=== PATIENT | female | born 1945 | race Caucasian/White ===

== ENCOUNTER 2023-04-29 19:52 | Emergency (ER) | payer MEDICARE, SELFPAY ==
[2023-04-29 19:57] VITALS: BP 148/78; PULSE 100; RESP 18; TEMP 37.1; O2SAT 98; BMI 27.4
--- NOTE | 2023-04-29 20:29 | ED_ITS ---
HPI - Back Pain/Injury General Chief Complaint: Back Pain/Injury Stated Complaint: Flank Pain Time Seen by Provider: 04/29/23 20:26 Source: patient Mode of arrival: walk-in Limitations: no limitations History of Present Illness HPI Narrative: patient presents complaining of left CVA pain that started around 5pm. No fever or urinary symptoms. No injury. States she spoke to a friend who advised she come in for workup. Denies past history of kidney infection. No associated abdominal pain MD elicited complaint: Reports back pain Related Data Home Medications Medication Instructions Recorded Confirmed No Known Home Medications 04/29/23 04/29/23 Allergies Allergy/AdvReac Type Severity Reaction Status Date / Time amoxicillin Allergy Mild GI upset Verified 04/29/23 20:04 erythromycin base Allergy Mild gi upset Verified 04/29/23 20:03 Penicillins Allergy Mild GI upset Verified 04/29/23 20:03 benedryl Allergy Mild GI upset Uncoded 04/29/23 20:03 doxycycline AdvReac Mild Abdominal Uncoded 04/29/23 20:03 Pain Review of Systems ROS Status of ROS 10 or more systems reviewed and unremark able except as noted in history and below PFSH [facility] Social History Smoking status: Never smoker Exam Constitutional Vital Signs, click to edit/add: Last Vital Signs Temp 98.7 F 04/29/23 19:57 Pulse 100 H 04/29/23 19:57 Resp 18 04/29/23 19:57 BP 148/78 H 04/29/23 19:57 Pulse Ox 98 04/29/23 19:57 O2 Del Method Room Air 04/29/23 19:57 Common normals: no apparent distress, average body habitus, oriented x3, no limitations, healthy appearing, alert and well nourished Eye Common normals: EOMs intact bilaterally and conjunctivae normal Respiratory Common normals: normal respiratory effort, no retractions, no use of accessory muscles and clear to auscultation bilaterally Cardio Common normals: regular rate, regular rhythm, S1 normal heart sound and S2 normal heart sound GI Common normals: Normal to inspection, nondistended, normoactive bowel sounds present, soft to palpation and non-tender Other: mild left CVA tenderness Extremity Common normals: normal to inspection and full ROM Neuro Common normals: oriented x3, CN's II-XII intact bilaterally, moves all extremities and no focal motor deficits Psych Appearance: grossly normal Course Vital Signs Vital signs: Vital Signs Temperature 98.7 F 04/29/23 19:57 Pulse Rate 100 H 04/29/23 19:57 Respiratory Rate 18 04/29/23 19:57 Blood Pressure 148/78 H 04/29/23 19:57 Pulse Oximetry 98 04/29/23 19:57 Oxygen Delivery Method Room Air 04/29/23 19:57 Temperature 98.7 F 04/29/23 19:57 Pulse Rate 100 H 04/29/23 19:57 Respiratory Rate 18 04/29/23 19:57 Blood Pressure 148/78 H 04/29/23 19:57 Pulse Oximetry 98 04/29/23 19:57 Oxygen Delivery Method Room Air 04/29/23 19:57 MDM - Back Pain/Injury MDM Narrative Medical decision making narrative: presents with left CVA pain. mild pain. UA neg for infection. CT with 3mm stone at Uterovesical junction. Patient re examined and now is pain free. She is advised of the diagnosis. Given dose of flomax and discharged to follow up with her doctor Lab Data Labs: Lab Results 04/29/23 04/29/23 Range/Units 20:39 21:52 WBC 11.1 H (4.0-11.0) 10^3/uL RBC 4.52 (4.20-5.40) 10^6/uL Hgb 13.0 (12.0-16.0) g/dL Hct 40.7 (36.0-48.0) % MCV 90.0 (81.0-99.0) fL MCH 28.8 (26.7-34.0) pg MCHC 31.9 (29.9-35.2) g/dL RDW 13.6 (11.0-15.0) % Plt Count 152 (150-450) 10^3/uL MPV 10.3 (9.5-13.5) fL Neut % (Auto) 60.1 (43.0-75.0) % Lymph % (Auto) 32.5 (20.5-60.0) % [place] % (Auto) 6.3 (1.7-12.0) % Eos % (Auto) 0.3 L (0.9-7.0) % Baso % (Auto) 0.3 (0.2-2.0) % Neut # (Auto) 6.6 H (1.4-6.5) 10^3/uL Lymph # (Auto) 3.6 (1.2-3.8) 10^3/uL [place] # (Auto) 0.7 (0.3-0.8) 10^3/uL Eos # (Auto) 0.0 (0.0-0.7) 10^3/uL Baso # (Auto) 0.0 (0.0-0.1) 10^3/uL Abs Immat Gran (auto) 0.06 H (0.00-0.03) 10^3/uL Imm/Tot Granulo (auto) 0.5 (0.0-0.5) % Sodium 137 (136-145) mmol/L Potassium 3.7 (3.5-5.1) mmol/L Chloride 101 (98-107) mmol/L Carbon Dioxide 26.6 (21.0-32.0) mmol/L Anion Gap 13.1 BUN 24.0 H (7.0-18.0) mg/dL Creatinine 0.92 (0.55-1.02) mg/dL Est GFR ( Amer) >60 (>=60) Est GFR (Non-Af Amer) 59 L (>=60) BUN/Creatinine Ratio 26.1 Glucose 121 H (74-106) mg/dL Calcium 10.0 (8.5-10.1) mg/dL Urine Color Yellow (YELLOW) Urine Clarity Clear (CLEAR) Urine pH 6.0 (5.0-9.0) Ur Specific [place] 1.025 (1.005-1.025) Urine Protein Negative (NEG/TRACE) mg/dL Urine Glucose (UA) Negative (NEGATIVE) mg/dL Urine Ketones 15 A (NEGATIVE) mg/dL Urine Occult Blood Trace-i (NEGATIVE) Urine Nitrite Negative (NEGATIVE) Urine Bilirubin Negative (NEGATIVE) Urine Urobilinogen 0.2 (0.2-1.0) EU/dL Ur Leukocyte Esterase Negative (NEGATIVE) Urine RBC 0-2 (0-2) #/HPF Urine WBC None seen (NONE SEEN) #/HPF Ur Squamous Epith Cells None seen (NONE/RARE) #/LPF Urine Crystals None seen (None Seen) #/HPF Urine Bacteria None seen (NONE SEEN) #/HPF Urine Casts None seen (NONE SEEN) #/LPF Urine Mucus None seen (NONE SEEN) Imaging Data Abdominal x-ray: Radiologist's impression: At the request of: LOTUS AVALOS Procedure: CT abdomen pelvis wo con EXAMINATION:CT abdomen pelvis wo con INDICATION:left CVA pain COMPARISON:None TECHNIQUE:Multiple thin section transaxial slices were acquired through the abdomen and pelvis without intravenous contrast. Coronal and sagittal reconstructed images were reviewed. Oral contrastWas not administered. FINDINGS: LOWER CHEST: The lower chest is unremarkable. LIVER: The liver is unremarkable. GALLBLADDER AND BILIARY SYSTEM: No obvious ductal dilation. There is cholelithiasis. SPLEEN: The spleen is unremarkable. PANCREAS: The pancreas is unremarkable. ADRENAL GLANDS: The adrenal glands are unremarkable. KIDNEYS AND URETERS: There is mild left-sided hydronephrosis and hydroureter secondary to a 3 mm size calculus located at the left ureterovesical junction. There is no right hydronephrosis. No urologic calcifications are identified in the right ureter. Discharge Plan Discharge Chief Complaint: Back Pain/Injury Clinical Impression: Renal colic on left side Patient Disposition: Home, Self-Care Prescriptions / Home Meds: No Action No Known Home Medications Instructions: Renal Colic (ED) Additional Instructions: follow up with your doctor in 2-3 days for recheck Stand Alone Forms: Portal Instructions Referrals: JAMES SAGE [Primary Care Provider] - 1 week
--- NOTE | 2023-04-29 20:32 | CT_ITS ---
The [address] [address] Patient Name: MORRIS ZAMARRIPA MRN: [id number] date: 1945 Sex: F Assigned Patient Location: ER Current Patient Location: ER Accession/Order Number: [id number] Exam Date: 04/29/2023 20:59 Report Date: 04/29/2023 22:00 At the request of: LOTUS AVALOS Procedure: CT abdomen pelvis wo con EXAMINATION:CT abdomen pelvis wo con INDICATION:left CVA pain COMPARISON:None TECHNIQUE:Multiple thin section transaxial slices were acquired through the abdomen and pelvis without intravenous contrast. Coronal and sagittal reconstructed images were reviewed. Oral contrastWas not administered. FINDINGS: LOWER CHEST: The lower chest is unremarkable. LIVER: The liver is unremarkable. GALLBLADDER AND BILIARY SYSTEM: No obvious ductal dilation. There is cholelithiasis. SPLEEN: The spleen is unremarkable. PANCREAS: The pancreas is unremarkable. ADRENAL GLANDS: The adrenal glands are unremarkable. KIDNEYS AND URETERS: There is mild left-sided hydronephrosis and hydroureter secondary to a 3 mm size calculus located at the left ureterovesical junction. There is no right hydronephrosis. No urologic calcifications are identified in the right ureter. VASCULATURE: Atherosclerotic plaque is present in the abdominal aorta without aneurysm. PERITONEUM/RETROPERITONEUM: There is fluid along the inferior left kidney traversing distally along the proximal retroperitoneum. LYMPH NODES: No suspicious lymphadenopathy. GASTROINTESTINAL TRACT: The bowel is normal in caliber.There is chronic colonic diverticulosis of the colon without acute inflammation.The appendix is not well delineated and may be absent or diminutive. BLADDER: The urinary bladder is unremarkable. REPRODUCTIVE SYSTEM: Calcifications are identified in the right pelvis and may be within a pedunculated fibroid or the right ovary. These have a benign appearance. BODY WALL: Unremarkable. BONES: Osseous structures are unremarkable. CT/CT abdomen pelvis wo con IMPRESSION: 1. Mild left-sided hydronephrosis and hydroureter secondary to a 3 mm size calculus located at the left ureterovesical junction. Electronically authenticated by: PHYLLIS PRADO Date: 04/29/2023 22:00
[2023-04-29 20:55] LABS: Basophils Percent Auto 0.3 % (0.2-2.0); Eosinophils Percent Auto 0.3 % (0.9-7.0); Hematocrit 40.7 % (36.0-48.0); Immature Granulocytes Abs Auto 0.06 10^3/uL (0.00-0.03); Immature Granulocytes Pct Auto 0.5 % (0.0-0.5); Lymphocytes Absolute Auto 3.6 10^3/uL (1.2-3.8); Lymphocytes Percent Auto 32.5 % (20.5-60.0); Mean Corpuscular HGB Conc 31.9 g/dL (29.9-35.2); Mean Corpuscular Hemoglobin 28.8 pg (26.7-34.0); Mean Platelet Volume 10.3 fL (9.5-13.5); Monocytes Absolute Auto 0.7 10^3/uL (0.3-0.8); Monocytes Percent Auto 6.3 % (1.7-12.0); Neutrophils Absolute Auto 6.6 10^3/uL (1.4-6.5); Neutrophils Percent Auto 60.1 % (43.0-75.0); Platelet Count 152 10^3/uL (150-450); Red Blood Count 4.52 10^6/uL (4.20-5.40); Red Cell Distribution Width 13.6 % (11.0-15.0); White Blood Count 11.1 10^3/uL (4.0-11.0)
[2023-04-29 21:01] LABS: Anion Gap 13.1; BUN Creatinine Ratio 26.1; Carbon Dioxide 26.6 mmol/L (21.0-32.0); Chloride 101 mmol/L (98-107); Estimated GFR (African America >60 (>=60); Estimated GFR (Non-African Ame 59 (>=60); Glucose 121 mg/dL (74-106); Potassium 3.7 mmol/L (3.5-5.1); Sodium 137 mmol/L (136-145)
[2023-04-29 22:02] LABS: Bilirubin Urine NEGATIVE (NEGATIVE); Blood Urine TRACE-I (NEGATIVE); Clarity Urine CLEAR (CLEAR); Color Urine YELLOW (YELLOW); Glucose Urine UA NEGATIVE (NEGATIVE); Ketones Urine 15 mg/dL (NEGATIVE); Leukocyte Esterase Urine NEGATIVE (NEGATIVE); Nitrite Urine NEGATIVE (NEGATIVE); Protein Urine NEGATIVE (NEG/TRACE); Specific Gravity Urine 1.025 (1.005-1.025); Urobilinogen Urine 0.2 EU/dL (0.2-1.0)
[2023-04-29 22:03] LABS: Urine Microscopic Indicated YES
[2023-04-29 22:09] LABS: Bacteria Urine NONE SEEN #/HPF (NONE SEEN); Mucus Urine NONE SEEN (NONE SEEN); RBC Urine 0-2 #/HPF (0-2); Squamous Epithelial Cell Urine NONE SEEN #/LPF (NONE/RARE); WBC Urine NONE SEEN #/HPF (NONE SEEN)
[2023-04-29 22:10] LABS: Cast Seen? NONE SEEN #/LPF (NONE SEEN); Crystals Seen? None Seen #/HPF (None Seen)
[2023-04-29] MEDS: TAMSULOSIN HCL 0.4 MG CAPSULE PO (23:00)
[2023-04-29 23:04] VITALS: BP 160/93; PULSE 85; RESP 18; O2SAT 98
== END 2023-04-29 23:06 | disposition home or self-care (01) ==
PROVIDERS: Emergency Provider Internal Medicine; PCP Family Medicine
DX: N13.2 Hydronephrosis with renal and ureteral calculous obstruction (principal); K80.20 Calculus of gallbladder without cholecystitis without obstruction
CPT/HCPCS: 36415; 74176; 80048; 81001; 85025; 99285